=== PATIENT | male | born 1935 | race Caucasian/White ===

== ENCOUNTER 2017-06-22 16:14 | Emergency (ER) | payer OTHER ==
[~2017-06-22] VITALS: Ht 177.8 cm; Wt 108.7 kg
[~2017-06-22 16:14] MED LIST: ALLOPURINOL100 MG PO; AMLODIPINE BESY10 MG PO; ASPIRIN81 M2 PO; ATENOLOL100 MG PO; BENADRYL50 MG PO; FEOSOL325 MG PO; FLAXSEED OIL1000 M4 PO; FLEXERIL10 MG PO; GLIMEPIRIDE1 MG PO; HYDROCHLOROTHIA25 MG PO; LOSARTAN POTAS100 MG PO; MEGA MULTI FOR1 EACH PO; PRAVASTATIN SOD40 MG PO; TAMSULOSIN HCL0.4 MG PO; VITAMIN D1000 UNIT PO
[2017-06-22 17:02] LABS: HEMATOCRIT 35.2 % (38.0-50.0); HEMOGLOBIN 12.2 G/DL (12.5-16.6); MCH 31.6 PG (29.0-34.0); MCHC 34.7 G/DL (30.0-36.0); MCV 91.2 FL (86-99); PLATELET COUNT 300 K/uL (156-360); RBC DIS.WIDTH-CV 12.4 % (11.8-14.6); RBC DIS.WIDTH-SD 41.1 % (39-53); RED BLOOD COUNT 3.86 M/uL (4.00-5.50)
[2017-06-22 17:10] LABS: CHLORIDE 97 mEq/L (99-109); SODIUM 131 mEq/L (136-147)
[2017-06-22 17:12] LABS: GLUCOSE 99 mg/dL (70-99)
[2017-06-22 17:15] LABS: APPEARANCE TURBID ((CLEAR)); BILIRUBIN NEGATIVE; BLOOD SMALL; COLOR AMBER ((YELLOW)); GLUCOSE (STRIP) NEGATIVE; KETONES NEGATIVE; LEUKOCYTES LARGE; NITRITE NEGATIVE; PROTEIN (STRIP) 100; SPECIFIC GRAVITY 1.013 (1.000-1.030); UROBILINOGEN 0.2 MG/DL (0.2-1.0)
[2017-06-22 17:16] LABS: GFR ESTIMATE (CALCULATED) 34 mL/min/ (58.99-99999)
[2017-06-22 17:17] LABS: UREA NITROGEN (BUN) 35 mg/dL (9-23)
[2017-06-22 17:58] LABS: EPITHELIAL CELLS NONE SEEN /HPF; UCUL ADDED? YES; WHITE BLOOD CELLS TNTC /HPF (0-5)
[2017-06-22] MEDS ORDERED: LEVAQUIN750 MG PO (18:40)
[2017-06-22 19:01] VITALS: BP 142/68
== END 2017-06-22 19:03 | disposition home or self-care (01) ==
LOC: EME 16:14
PROVIDERS: Emergency Medicine
DX: N39.0 Urinary tract infection, site not specified (principal); R31.9 Hematuria, unspecified; I12.9 Hypertensive chronic kidney disease with stage 1 through stage 4 chronic kidney disease, or unspecified chronic kidney disease; N18.9 Chronic kidney disease, unspecified; E78.5 Hyperlipidemia, unspecified; E11.9 Type 2 diabetes mellitus without complications; Z87.891 Personal history of nicotine dependence; Z79.82 Long term (current) use of aspirin; Z79.84 Long term (current) use of oral hypoglycemic drugs
CPT/HCPCS: 80048; 81003; 85027; 87077; 87086; 87186; 99281; 99285

== ENCOUNTER → 2017-10-19 | Outpatient (CLI) | payer MEDICARE, OTHER ==
[~2017-10-19] MED LIST changes: +LEVAQUIN750 MG PO
== END | disposition home or self-care (01) ==
LOC: CDC 08:27
DX: I44.0 Atrioventricular block, first degree (principal)
CPT/HCPCS: 93000